=== PATIENT | male | born 1990 | race Two or more races ===

== ENCOUNTER 2021-09-15 17:59 | Emergency (ER) | payer MEDICAID, OTHER ==
[~2021-09-15] VITALS: Ht 182.9 cm; Wt 94.3 kg
[2021-09-15 18:59] VITALS: BP 119/77
[2021-09-15] MEDS ORDERED: IBUP800T27 PO (19:00)
[2021-09-15] MEDS ORDERED: KETOROLAC TROMETH 30 MG/ML 1ML VIAL IM ONE (19:00)
[2021-09-15] MEDS ORDERED: CLIN300C8 PO (19:00)
== END 2021-09-15 19:18 | disposition home or self-care (01) ==
LOC: ER 18:02
DX: L02.212 Cutaneous abscess of back [any part, except buttock and flank] (principal); Z79.1 Long term (current) use of non-steroidal anti-inflammatories (NSAID); Z79.2 Long term (current) use of antibiotics
CPT/HCPCS: 96372; 99283; J1885